=== PATIENT | male | born 1950 | race Caucasian/White ===

== ENCOUNTER 2024-08-06 06:15 | Day surgery (SDC) | payer MEDICARE, OTHER, SELFPAY ==
[2024-08-06 07:18] LABS: Glucose - Point of Care 159 mg/dl (70-99)
== END 2024-08-06 08:54 | disposition home or self-care (01) ==
LOC: GI 06:15
PROVIDERS: ATTENDING PHYSICIAN Internal Medicine
DX: Z12.11 Encounter for screening for malignant neoplasm of colon (principal); K63.5 Polyp of colon; Z86.0100 Personal history of colon polyps, unspecified; K64.8 Other hemorrhoids; K57.30 Diverticulosis of large intestine without perforation or abscess without bleeding
CPT/HCPCS: 45385; 45380; 88305; 82962

== ENCOUNTER → 2024-10-18 14:57 | Outpatient (REF) | payer MEDICARE, OTHER, SELFPAY | LOC: DHVS 14:57 | PROVIDERS: ATTENDING PHYSICIAN Surgery Vascular Surgery | DX: I73.9 Peripheral vascular disease, unspecified (principal) | CPT/HCPCS: 93922; 93925 ==